=== PATIENT | female | born 1950 | race Caucasian/White ===

== ENCOUNTER 2018-05-13 20:38 | Inpatient (IN) | payer OTHER ==
--- NOTE | 2018-05-13 20:51 | EDPHY ---
H & P Time Seen by Provider: 05/13/18 20:47 HPI/ROS: CHIEF COMPLAINT: Chest pain HISTORY OF PRESENT ILLNESS: Patient is a 60-year-old female presents emergency department chest pain starting around 4:00 a.m.. She states she may have felt slightly off last evening is not sure the exact onset. EMS was notified. They noticed an ST elevation [place]. A cardiac alert was called in route. I spoke with the air defense artillery senior sergeant on the phone while they were traveling to [facility]. Patient states that she now has 1/10 chest pain after receiving nitroglycerin. She had no nausea vomiting. No diaphoresis. No leg pain or swelling. She has had no previous heart attack. REVIEW OF SYSTEMS: 10 systems were reveiwed and are negative with the exception of the elements mentioned in the history of present illness. Past medical history: Denies Social history: Patient does not smoke. She is Physical Exam: Vitals noted GENERAL: Well-appearing, in no acute distress, alert. HEENT: Eyes normal to inspection, normal pharynx, no signs of dehydration. NECK: Normal, supple. RESPIRATORY: Clear to auscultation bilaterally, no rales, rhonchi or wheezing. CVS: Regular rate and rhythm, no rubs, murmurs, or gallops. ABDOMEN: Soft, nontender, nondistended, no organomegaly. BACK: Normal to inspection, no CVA tenderness. SKIN: Normal color, no rash, warm, dry. No pallor. EXTREMITIES: No pedal edema, no calf tenderness, no Homans sign or cords, no joint swelling. NEURO/PSYCH: Alert and oriented, normal mood and affect, normal motor sensory exam. No obvious cranial nerve deficit. Constitutional: Initial Vital Signs Temperature (C) 36.6 C 05/13/18 20:38 Heart Rate 70 05/13/18 20:38 Respiratory Rate 16 05/13/18 20:38 Blood Pressure 158/77 H 05/13/18 20:38 O2 Sat (%) 94 05/13/18 20:38 O2 Delivery Mode Room Air O2 (L/minute) 2 Allergies/Adverse Reactions: Penicillins Allergy (Verified 05/13/18 20:55) Home Medications: Medication Instructions Recorded NK [No Known Home Meds] 05/13/18 Medical Decision Making ED Course/Re-evaluation: In the emergency department I met EMS on arrival. I took report from the air defense artillery senior sergeant. I was at the patient's bedside for evaluation. EKG shows normal sinus rhythm, [normal rate, normal axis, normal intervals]. There is ST elevation in 1, aVL, V2 through V5. There is depression in 2, 3 and AVF. This is an abnormal EKG with acute ST-elevation TX. Patient was given morphine 4 mg IV for pain control. Patient reported that she was feeling a "pressure." I discussed the case with Dr. Souza on the phone. 2109: I rechecked the patient. She was hemodynamically stable. Patient continued to have chest pain that was slightly worsening. She was given nitroglycerin sublingual. Differential Diagnosis: My differential in includes but is not limited to ACS, acute TX, dissection, aneurysm, pulmonary embolus - Data Points Laboratory Results: Laboratory Results 05/13/18 20:50 05/13/18 05/13/18 05/13/18 20:51 20:50 20:50 WBC RBC Hgb POC Hgb 15.0 gm/dL gm/dL (12.6-16.3) Hct POC Hct 44 % % (38-47) MCV MCH MCHC RDW Plt Count MPV Neut % (Auto) Lymph % (Auto) [place] % (Auto) Eos % (Auto) Baso % (Auto) Nucleat RBC Rel Count Absolute Neuts (auto) Absolute Lymphs (auto) Absolute Monos (auto) Absolute Eos (auto) Absolute Basos (auto) Absolute Nucleated RBC Immature Gran % Immature Gran # PT REJ INR REJ APTT REJ POC Sodium 139 mEq/L mEq/L (135-145) Sodium Pending POC Potassium 3.5 mEq/L mEq/L (3.3-5.0) Potassium Pending POC Chloride 109 mEq/L mEq/L (97-110) Chloride Pending Carbon Dioxide Pending POC Total CO2 17 mEq/L L mEq/L (22-31) Anion Gap Pending POC BUN 12 mg/dL mg/dL (7-23) BUN Pending Creatinine Pending POC Creatinine 0.8 mg/dL mg/dL (0.6-1.0) Estimated GFR Pending Glucose Pending POC Glucose 142 mg/dL H mg/dL (70-100) Calcium Pending POC Troponin I 05/13/18 05/13/18 20:50 20:44 WBC 9.59 10^3/uL H 10^3/uL (3.80-9.50) RBC 5.07 10^6/uL 10^6/uL (4.18-5.33) Hgb 15.0 g/dL g/dL (12.6-16.3) POC Hgb Hct 42.9 % % (38.0-47.0) POC Hct MCV 84.6 fL fL (81.5-99.8) MCH 29.6 pg pg (27.9-34.1) MCHC 35.0 g/dL g/dL (32.4-36.7) RDW 12.6 % % (11.5-15.2) Plt Count 285 10^3/uL 10^3/uL (150-400) MPV 9.9 fL fL (8.7-11.7) Neut % (Auto) 65.7 % % (39.3-74.2) Lymph % (Auto) 27.9 % % (15.0-45.0) [place] % (Auto) 5.6 % % (4.5-13.0) Eos % (Auto) 0.3 % L % (0.6-7.6) Baso % (Auto) 0.2 % L % (0.3-1.7) Nucleat RBC Rel Count 0.0 % % (0.0-0.2) Absolute Neuts (auto) 6.29 10^3/uL 10^3/uL (1.70-6.50) Absolute Lymphs (auto) 2.68 10^3/uL 10^3/uL (1.00-3.00) Absolute Monos (auto) 0.54 10^3/uL 10^3/uL (0.30-0.80) Absolute Eos (auto) 0.03 10^3/uL 10^3/uL (0.03-0.40) Absolute Basos (auto) 0.02 10^3/uL 10^3/uL (0.02-0.10) Absolute Nucleated RBC 0.00 10^3/uL 10^3/uL (0-0.01) Immature Gran % 0.3 % % (0.0-1.1) Immature Gran # 0.03 10^3/uL 10^3/uL (0.00-0.10) PT INR APTT POC Sodium Sodium POC Potassium Potassium POC Chloride Chloride Carbon Dioxide POC Total CO2 Anion Gap POC BUN BUN Creatinine POC Creatinine Estimated GFR Glucose POC Glucose Calcium POC Troponin I 0.15 ng/mL H ng/mL (0.00-0.08) Point of Care Test Results: Chemistry 05/13/18 05/13/18 20:51 20:44 POC Sodium 139 mEq/L mEq/L (135-145) POC Potassium 3.5 mEq/L mEq/L (3.3-5.0) POC Chloride 109 mEq/L mEq/L (97-110) POC Total CO2 17 mEq/L L mEq/L (22-31) POC BUN 12 mg/dL mg/dL (7-23) POC Creatinine 0.8 mg/dL mg/dL (0.6-1.0) POC Glucose 142 mg/dL H mg/dL (70-100) POC Troponin I 0.15 ng/mL H ng/mL (0.00-0.08) ISTAT H&H 05/13/18 20:51 POC Hgb 15.0 gm/dL gm/dL (12.6-16.3) POC Hct 44 % % (38-47) Departure - Departure Disposition: [facility] Inpatient Acute Clinical Impression: Chest pain STEMI (ST elevation myocardial infarction) Qualifiers: Involved coronary artery: unspecified coronary artery Qualified Code(s): I21.3 - ST elevation (STEMI) myocardial infarction of unspecified site Condition: Good Referrals: Patient,NotPresent [Primary Care Provider] - As per Instructions
[2018-05-13 20:54] LABS: PLATELET COUNT 285 10^3/uL (150-400)
[2018-05-13] MEDS ORDERED: NITROGLYCERIN 0.4 MG BTL SL ONE ×2 (21:00→21:12)
[2018-05-13] MEDS ORDERED: MIDAZOLAM 2 MG/2 ML VIAL ONE (21:01)
[2018-05-13] MEDS ORDERED: fentaNYL 100 MCG/2 ML INJ ONE (21:01)
[2018-05-13] MEDS ORDERED: LIDOCAINE 1% 300 MG/30 ML SDV ONE (21:01)
[2018-05-13] MEDS ORDERED: IOPAMIDOL (ISOVUE-370) 150 ML BTL IV ONE (21:01)
[2018-05-13] MEDS ORDERED: ATROPINE SULFATE 1 MG/10 ML SYR ONE (21:27)
[2018-05-13] MEDS ORDERED: NITROGLYCERIN 1,500 MCG/15 ML VIAL MISC ONE (21:27)
[2018-05-13] MEDS ORDERED: EPINEPHrine 1 MG/10 ML SYR IVP ONE (21:27)
[2018-05-13] MEDS ORDERED: BIVALIRUDIN 250 MG/5 ML VIAL IV ONE (21:27)
[2018-05-13] MEDS ORDERED: METOPROLOL TARTRATE 5 MG/5 ML INJ ONE ×2 (21:45→21:56)
[2018-05-13] MEDS ORDERED: PRASUGREL HCL 10 MG TAB ONE (21:56)
--- NOTE | 2018-05-13 22:09 | PDDXCAT ---
Diagnostic Cath Note - . Date: 05/13/18 Sales Marketing Manager: Harley Indication: other (STEMI, anterior) - Procedure Access: right groin Procedure: left heart catheterization, coronary angiography, left ventriculogram - Materials Left Heart Cath size: 6F Left Heart Cath materials: standard multipack (JL4, JR4, pigtail) - Findings-Left Heart Catheterization LM: Unobstructed LAD: Thrombotic occlusion proximally LCX: Large vessel giving rise to obtuse marginal branch RCA: Dominant: Unobstructed EDP: 25 mm of mercury postprocedure LVEF: 35 Wall motion: Anterior apical akinesis Complications: None Estimated blood loss: <50ml Closure method: Angioseal Assessment: ST segment elevation myocardial infarction with thrombotic occlusion of the proximal LAD Plan: PCI Intervention: After reviewing diagnostic angiogram was a to proceed with emergency PCI. Patient was anticoagulated with Angiomax. Using a 6 [place] JL4 guiding catheter left main coronary selectively intubated. Guiding shots were performed. Using a 0.014 luge wire the LAD was entered the wire placed in the distal vessel. 2 mm balloon was used with a single inflation to reestablish antegrade flow. The wire was repositioned in the apex. 3.5 x 24 mm synergy stent was placed across the lesion and deployed using a single inflation. It was post dilated with a 4 mm noncompliant balloon x2. The wire was withdrawn. Repeat angiograms revealed a distal edge dissection. It was elected to proceed with the 2nd stent. The lesion was rewired. A 3.5 x 12 mm synergy stent was placed distally. Was deployed using a single inflation to a diameter of 4 mm. The same stent balloon was used to post dilate the overlap. The wire was withdrawn. Final orthogonal angiograms were obtained. Left ventricular angiography was performed postprocedure. Conclusion: ST segment elevation myocardial infarction with thrombotic occlusion of the proximal LAD status post successful PCI and stenting. Ischemic cardiomyopathy with reduced LV systolic function elevated filling pressures. Patient begun on Dylon inhibition, beta rajinder, eplerenone along with dual antiplatelet therapy. In light of large anterior apical akinetic segment will initiate warfarin. Echocardiogram tomorrow for LV recovery. Patient Problems: Problems Problem Status Onset Chest pain Acute STEMI (ST elevation myocardial infarction) Acute
--- NOTE | 2018-05-13 22:26 | GCON ---
[f rep st] CONSULTATION CARDIAC ALERT NOTE DATE OF CONSULTATION: 05/13/2018 I am called for cardiac alert to visit Ms. Marin in the emergency department. She is 68 years old. She has a history of a cholecystectomy, history of a hysterectomy. No history of diabetes, hypertension, hyperlipidemia. No family history of early heart disease. Nonsmoker, who has had 24 hours of substernal chest pressure radiating to her shoulders. She activated 911. On arrival, EKG showed anterior ST elevation with reciprocal ST depression consistent with an acute ST-segment elevation myocardial infarction, and a cardiac alert was ordered. On my arrival, the patient was continuing to have discomfort of her chest. It was radiating to her shoulders. It did not radiate to her jaw. It did not radiate to her abdomen. It was not associated with shortness of breath, nausea, or vomiting. She clearly was associated with anxiety. MEDICATIONS: Patient takes no medicines regularly. ALLERGIES: Include penicillin. SURGICAL HISTORY: As outlined above. SOCIAL HISTORY: No acute stressors. GENERAL REVIEW OF SYSTEMS: Negative for bruising, bleeding, hematemesis, melena , or hemoptysis. PHYSICAL EXAMINATION: VITAL SIGNS: On my arrival, heart rate was 82. Blood pressure was 130/70. Respiratory rate was 16 and nonlabored. GENERAL: She is a well-nourished, well-developed female. She was resting in bed at 30 degrees. She is mildly anxious without significant diaphoresis. HEENT: Pupils were equal and reactive to light. She had no conjunctival injection. Her oropharynx was clear. NECK: Revealed no significant JVP. CHEST: Clear to auscultation and percussion. Palpation of anterior chest wall revealed no RV lift. She had a regular rate and rhythm with soft S4. ABDOMEN: Soft, nontender with good bowel sounds. I could not appreciate any organomegaly. Femoral pulses were +2 and equal. Dorsalis pedis pulses were +2 and equal. There was no livedo reticularis. There was no rash. NEUROLOGIC: She was alert and oriented. There was facial symmetry. She was moving upper and lower extremities normally. DATA BASE: EKG showed sinus rhythm at 77 beats per minute. RI interval is 106 milliseconds, QRS duration 80 milliseconds, QT corrected 469. There is ST elevation V1, V2 all the way out to V4, with ST elevation in I, aVL, and reciprocal ST depression in III and AVF. LABORATORY DATA: Pending. CONCLUSION: ST-segment elevation anterior wall myocardial infarction by EKG and clinical history. Ongoing discomfort. Stable vital signs. Patient was taken to cardiac photonic laboratory technician for directed angiogram with likely PCI. Risks and benefits of this approach were discussed with the patient and her . We will proceed. /[id number]/MODL MTDD
--- NOTE | 2018-05-13 23:43 | CPEKG ---
Test Reason : OPEN Blood Pressure : / mmHG Vent. Rate : 077 BPM Atrial Rate : 076 BPM P-R Int : 166 ms QRS Dur : 080 ms QT Int : 431 ms P-R-T Axes : 054 019 -30 degrees QTc Int : 488 ms Sinus rhythm Probable left atrial enlargement Lateral infarct, acute (LAD) Probable anteroseptal infarct, recent Confirmed by Arabella Mars ([id number]) on 05/13/2018 11:42:16 PM Referred By: ARABELLA MARS Confirmed By:Arabella Mars
[2018-05-14] MEDS: ATORVASTATIN CALCIUM 40 MG TAB PO SCH ×2 (01:12→10:28)
[2018-05-14 02:17] LABS: CREATINE KINASE 2824 IU/L (0-156)
[2018-05-14 05:39] LABS: PLATELET COUNT 238 10^3/uL (150-400)
[2018-05-14 06:23] LABS: CREATINE KINASE 5432 IU/L (0-156)
[2018-05-14] MEDS: CALCIUM CARBONATE 500 MG CHEWABLE TAB PO PRN ×3 (09:37→21:08)
[2018-05-14] MEDS: CARVEDILOL 3.125 MG TAB PO SCH ×2 (10:27→18:10)
[2018-05-14] MEDS: ASPIRIN 81 MG CHEWABLE TAB PO SCH (10:28)
[2018-05-14] MEDS: PRASUGREL HCL 10 MG TAB PO SCH (10:28)
--- NOTE | 2018-05-14 10:41 | PDMN ---
Medical Necessity Medical necessity: MCG M230 CO, 2 days: 68 yo w/ acute CO (STEMI, anterior). Emergent label maker for tx - ST segment elevation CO w/ thrombotic occlusion of proximal LAD, PCI/stent completed. Admit to ICU inpatient status.
--- NOTE | 2018-05-14 10:52 | ECHO ---
[email or web address] [address] Main: [phone] Echocardiography Examination Transthoracic Name: SKYLER DOUGHERTY MR#: [id number] Study Date: 05/14/2018 Study Time: 06:00 AM Date of : 1950 Age: 68 year(s) Height: 162.6 cm (64 in.) Weight: 77.57 kg (171 lb.) BSA: 1.83 m2 Gender: Female Examination: Indication: LV recovery post stents Image Quality: Good Contrast: Requested by: Master Souza md BP: 131 mmHg/74 mmHg Heart Rate: Rhythm: Indication: LV recovery post stents Procedure Staff Referring Physician: Senior Project Manager Engineering: Klaudia Botello RDCS Reading Physician: Master Souza MD Requesting Provider: Ordering Physician: Master Souza MD Indication: LV recovery post stents Measurements Chambers AV/MV Label Value Normal Value Label Value Normal Value IVSd, 2D 0.6 cm (0.6cm - 1.1cm) AR PHT 0.53 s LVDd, 2D 4.5 cm (3.9cm - 5.3cm) AR PHT 529 ms LVDs, 2D 3.8 cm (2.1cm - 4cm) AR Vmax 4.61 m/s LVEF, 2D 36 % (54% - 74%) AV PGmean 4 mmHg LVEF, BP 44 % (55% - 70%) AV Vmax, Curve 1.3 m/s LVEF, MOD2 51 % (55% - 70%) MV A Vmax 0.82 m/s LVEF, MOD4 38 % (55% - 70%) MV E' lateral 0.06 m/s LVPWd, 2D 1 cm MV E' mean 0.06 m/s LA Area, A2C 15.5 cm2 (0cm2 - 20cm2) MV E' septal 0.06 m/s LA Volume, A2C 39 ml (22ml - 52ml) MV E Vmax 0.98 m/s LADs, 2D 3.3 cm (2.7cm - 3.8cm) MV E/A 1.2 Additional Vessels MV E/E' lateral 15.5 Label Value Normal Value MV E/E' mean 16.33 AoAsc 2.9 cm MV E/E' septal 16.8 (0.45 - 1.25) AoRoot, MM 3 cm (2.2cm - 3.7cm) TV/PV Label Value Normal Value RA Pressure 5 mmHg RVSP 44 mmHg Patient: SKYLER DOUGHERTY Study Date: 05/14/2018 Page 1 of 2 06:00 AM TR Pmax 39 mmHg TR Vmax 3.12 m/s Conclusions Overall Conclusions: Anterior apical myocardial infarction with ejection fraction of 30-35%. Right ventricular systolic pressure 44 mm of mercury. Mild mitral regurgitation. No LV thrombus identified. Findings Left Ventricle: Diastolic dysfunction is indeterminate.LV mid inferoseptal wall and entire apical regions are akinetic. EF estimate is 30-35%.. Left ventricle is normal in size. Moderately reduced systolic left ventricular function. There is mild concentric left ventricular hypertrophy. Right Ventricle: Normal size right ventricle. Left Atrium: The left atrium is normal in size. Right Atrium: The right atrium is normal in size. Mitral Valve: Mitral valve appears structurally normal. Mild mitral regurgitation. Aortic Valve: Trivial aortic regurgitation is present. The aortic valve is trileaflet. Tricuspid Valve: Mild pulmonary hypertension (RVSP is 44mmHG.). Tricuspid valve leaflets are structurally normal. Trivial tricuspid regurgitation. Right Ventricular systolic pressure is measured at 44 mmHg. Pulmonic Valve: Pulmonic valve is poorly visualized. Trivial pulmonic valve regurgitation is present. Aorta: The aortic root size in M-mode measures 3.0 cm. The ascending aorta measures 2.9 cm. Aorta Measurements AoRoot, MM is 3.0 cm. Pericardium: A pericardial fat pad is present. Exam Details Image Quality: Good (No Signature Object) Patient: SKYLER DOUGHERTY Study Date: 05/14/2018 Page 2 of 2 06:00 AM [id number]
--- NOTE | 2018-05-14 10:55 | SOAPPROG ---
[facility] Progress Note Assessment/Plan: Assessment: Problem list: 1. Anterior wall myocardial infarction status post LAD PCI 2. Ischemic cardiomyopathy 3. Hyperlipidemia Procedures: Left heart catheterization coronary ventricular angiography with PCI of the LAD on 05/13/2018. Echocardiogram on 05/14/2018. Impression: Day 1 status post anterior wall myocardial infarction. Uncomplicated. Episodes of AIVR well tolerated. Single episode of heartburn associated with improving EKG. CPKs noted. Risk include significant hyperlipidemia. Recommendations: Continue current medical therapy. Continue telemetry observation. Advanced activity. 05/14/18 10:52 Subjective: Uneventful night. Brief episode of mid epigastric discomfort consistent with heartburn. Different from her presenting symptoms. No shortness of breath no PND no orthopnea. No palpitations or syncope. Telemetry overnight showed AIVR. The echocardiogram showed ejection fraction 30-35% with anterior apical akinesis. There is preserved wall thickness. There are no significant valvular abnormalities. There was no LV thrombus. There is no evidence of other complications. Objective: Medications Generic Name Dose Route Start Last Admin Trade Name Freq PRN Reason Stop Dose Admin Aspirin 81 mg 05/14/18 09:00 05/14/18 10:28 Aspirin PO 11/10/18 08:59 81 mg DAILY [facility] Atorvastatin Calcium 80 mg 05/13/18 22:15 05/14/18 10:28 Lipitor PO 11/09/18 22:14 80 mg DAILY [facility] Carvedilol 3.125 mg 05/14/18 08:00 05/14/18 10:27 Coreg PO 11/10/18 07:59 3.125 mg BIDMEAL [facility] Enalapril Maleate 2.5 mg 05/14/18 09:00 Vasotec PO 11/10/18 08:59 BID [facility] Eplerenone 25 mg 05/14/18 09:00 Inspra PO 11/10/18 08:59 DAILY [facility] Prasugrel 10 mg 05/14/18 09:00 05/14/18 10:28 Effient PO 11/10/18 08:59 10 mg DAILY [facility] Warfarin Sodium 5 mg 05/14/18 16:00 Coumadin PO 11/10/18 15:59 DAILY AT 4PM [facility] Vital Signs Temp Pulse Resp BP Pulse Ox 36.6 C 62 14 132/74 H 93 05/13/18 23:30 05/14/18 10:27 05/14/18 08:00 05/14/18 10:27 05/14/18 08:00 Laboratory Results 05/14/18 05:20 05/14/18 05:20 05/13/18 05/14/18 05/15/18 05:59 05:59 06:59 Intake Total 800 Balance 800 PT REJ 05/13/18 21:17 INR REJ 05/13/18 21:17 Laboratory Tests 05/14/18 05/14/18 05/14/18 01:05 05:20 05:20 Creatine Kinase 2824 H 5432 H CK-MB (CK-2) Fraction 236.00 H 447.00 H Cholesterol 275 H LDL Cholesterol, Calc 201 H 05/14/18 08:15 Creatine Kinase CK-MB (CK-2) Fraction 349.00 H Cholesterol LDL Cholesterol, Calc Physical Exam - Physical Exam General Appearance: alert, no apparent distress Neck: full range of motion, supple Respiratory: lungs clear Cardiac/Chest: regular rate, rhythm, No JVD Peripheral Pulses: 1+: carotid (R), carotid (L), femoral (R), femoral (L) Abdomen: normal bowel sounds, non-tender Back: No CVA tenderness Skin: warm/dry Lymphatic: no adenopathy Extremities: No pedal edema, No calf tenderness Neuro/Psych: no motor/sensory deficits, alert, No facial droop ICD10 Worksheet Patient Problems: Problems Problem Status Onset Chest pain Acute STEMI (ST elevation myocardial infarction) Acute Review of Systems - Review of Systems Constitutional: denies: chills, fever EENTM: no symptoms reported Respiratory: no symptoms reported Cardiac: no symptoms reported Gastrointestinal/Abdominal: abdominal pain Genitourinary: no symptoms Musculoskelatal: no symptoms Skin: no symptoms Neurological: no symptoms Hematologic/Lymphatic: no symptoms reported Immunologic/allergic: no symptoms reported
[2018-05-14 11:03] LABS: CREATINE KINASE 4304 IU/L (0-156)
[2018-05-14] MEDS: ENALAPRIL MALEATE 2.5 MG TAB PO SCH ×2 (12:00→22:03)
[2018-05-14] MEDS: EPLERENONE 25 MG TAB PO SCH (12:00)
[2018-05-14] MEDS: ACETAMINOPHEN 325 MG TAB PO PRN ×2 (16:00→23:09)
[2018-05-14] MEDS: WARFARIN SODIUM 5 MG TAB PO SCH (16:00)
[2018-05-14 17:43] LABS: CREATINE KINASE 2301 IU/L (0-156)
[2018-05-15] MEDS: CARVEDILOL 3.125 MG TAB PO SCH ×2 (09:54→18:34)
[2018-05-15] MEDS: ASPIRIN 81 MG CHEWABLE TAB PO SCH (09:54)
[2018-05-15] MEDS: ATORVASTATIN CALCIUM 40 MG TAB PO SCH (09:54)
[2018-05-15] MEDS: ENALAPRIL MALEATE 2.5 MG TAB PO SCH ×2 (09:54→21:07)
[2018-05-15] MEDS: PRASUGREL HCL 10 MG TAB PO SCH (09:55)
[2018-05-15] MEDS: EPLERENONE 25 MG TAB PO SCH (09:55)
[2018-05-15] MEDS ORDERED: LACTULOSE 20 GM/30 ML UDCUP PO PRN (10:14)
[2018-05-15] MEDS ORDERED: MAGNESIUM HYDROXIDE 30 ML UDCUP PO PRN (10:14)
[2018-05-15] MEDS ORDERED: POLYETHYLENE GLYCOL 3350 17 GM PKT PO PRN (10:14)
[2018-05-15] MEDS ORDERED: BISACODYL 10 MG SUPP PR PRN (10:14)
--- NOTE | 2018-05-15 12:16 | ASMTCMCOM ---
CM Note CM Note Notes: Pt is a 68 yo F presents with RI. Transitional care and Cardiac consults are ordered. I anticipate pt will likely be discharged independently with outpatient follow-up as indicated. CM available if needs arise. Plan: independent Date Signed: 05/15/2018 12:15 PM Electronically Signed By:WINIFRED Austin
--- NOTE | 2018-05-15 13:09 | SOAPPROG ---
TOMAS Progress Note Assessment/Plan: Assessment: Problem list: 1. Anterior wall myocardial infarction status post LAD PCI 2. Ischemic cardiomyopathy 3. Hyperlipidemia Procedures: Left heart catheterization coronary ventricular angiography with PCI of the LAD on 05/13/2018. Echocardiogram on 05/14/2018. 05/14/18 10:52 Impression: Day 1 status post anterior wall myocardial infarction. Uncomplicated. Episodes of AIVR well tolerated. Single episode of heartburn associated with improving EKG. CPKs noted. Risk include significant hyperlipidemia. Recommendations: Continue current medical therapy. Continue telemetry observation. Advanced activity. 05/15/18 13:06 Impression: Day 2. Status post anterior myocardial infarction. No complications. Stable hemodynamics on good medical therapy. Recommendations: Advanced activity as tolerated. Continue telemetry observation for a full 48 hr. Continue anticoagulation with anterior regional wall motion abnormality. Discharge planning for tomorrow. Subjective: Uneventful 24 hr. No further chest pain. Does have episodes where she feels like she is not going to have a next breath. She has had some mild heartburn relieved with Tums. She has had difficulty with constipation. She has had occasional heart flutters. She has been in bed without regular activity as of yet. She denies PND orthopnea. She has had no palpitations syncope or near syncope. Objective: Medications Generic Name Dose Route Start Last Admin Trade Name Freq PRN Reason Stop Dose Admin Eplerenone 25 mg 05/14/18 09:00 05/15/18 09:55 Inspra PO 11/10/18 08:59 25 mg DAILY [facility] Warfarin Sodium 5 mg 05/14/18 16:00 05/14/18 16:00 Coumadin PO 11/10/18 15:59 5 mg DAILY AT 4PM [facility] Aspirin 81 mg 05/14/18 09:00 05/15/18 09:54 Aspirin PO 11/10/18 08:59 81 mg DAILY [facility] Atorvastatin Calcium 80 mg 05/13/18 22:15 05/15/18 09:54 Lipitor PO 11/09/18 22:14 80 mg DAILY [facility] Carvedilol 3.125 mg 05/14/18 08:00 05/15/18 09:54 Coreg PO 11/10/18 07:59 3.125 mg BIDMEAL [facility] Enalapril Maleate 2.5 mg 05/14/18 09:00 05/15/18 09:54 Vasotec PO 11/10/18 08:59 2.5 mg BID [facility] Prasugrel 10 mg 05/14/18 09:00 05/15/18 09:55 Effient PO 11/10/18 08:59 10 mg DAILY [facility] Vital Signs Temp Pulse Resp BP Pulse Ox 36.6 C 55 L 14 108/79 96 05/15/18 11:46 05/15/18 11:46 05/15/18 11:46 05/15/18 11:46 05/15/18 11:46 Laboratory Results 05/14/18 05:20 05/14/18 05:20 05/14/18 05/15/18 05/16/18 04:59 05:59 05:59 Intake Total Balance PT REJ 05/13/18 21:17 INR REJ 05/13/18 21:17 ICD10 Worksheet Patient Problems: Problems Problem Status Onset Chest pain Acute STEMI (ST elevation myocardial infarction) Acute Review of Systems - Review of Systems Constitutional: no symptoms reported EENTM: no symptoms reported Respiratory: shortness of breath. denies: cough, orthopnea, wheezing Cardiac: palpitations. denies: chest pain, edema, irregular heart rate, lightheadedness, syncope Gastrointestinal/Abdominal: constipation. denies: diarrhea, nausea, vomiting Genitourinary: no symptoms Musculoskelatal: no symptoms Skin: no symptoms Neurological: no symptoms Hematologic/Lymphatic: no symptoms reported Immunologic/allergic: no symptoms reported
[2018-05-15] MEDS: WARFARIN SODIUM 5 MG TAB PO SCH (16:49)
[2018-05-15] MEDS: SENNOSIDES/DOCUSATE SODIUM TAB PO SCH (21:09)
[2018-05-16 04:25] LABS: INR 1.39 (0.83-1.16); PROTIME(PATIENT) 16.5 SEC (12.0-15.0)
[2018-05-16] MEDS: CARVEDILOL 3.125 MG TAB PO SCH (10:06)
[2018-05-16] MEDS: ASPIRIN 81 MG CHEWABLE TAB PO SCH (10:07)
[2018-05-16] MEDS: ATORVASTATIN CALCIUM 40 MG TAB PO SCH (10:07)
[2018-05-16] MEDS: PRASUGREL HCL 10 MG TAB PO SCH (10:08)
[2018-05-16] MEDS: ENALAPRIL MALEATE 2.5 MG TAB PO SCH (10:08)
[2018-05-16] MEDS: EPLERENONE 25 MG TAB PO SCH (10:08)
[2018-05-16] MEDS: SENNOSIDES/DOCUSATE SODIUM TAB PO SCH (10:08)
[2018-05-16] MEDS ORDERED: PSYLLIUM METAMUCIL 1 PKT PO ONE (10:18)
--- NOTE | 2018-05-16 10:48 | GDS ---
[f rep st] DISCHARGE SUMMARY DISCHARGE DIAGNOSES: 1. Acute ST elevated anterior myocardial infarction, status post stenting to the left anterior desce nding artery with a 3.5 x 24 mm and 3.5 x 12 mm overlapping synergy drug-eluting stents. 2. Ischemic cardiomyopathy with ejection fraction of 30% to 35%. 3. Hyperlipidemia. 4. Accelerated idioventricular rhythm. HOSPITAL COURSE: For detailed H and P, please see prior dictation. Briefly, the patient is a 68-year-old female who presented to the hospital with an anterior ST elevat ed myocardial infarction. She was at home when she developed substernal chest pressure radiating to her shoulders, which persisted for 24 hours. She ultimately activated 911 and her EKG showed anterio r ST elevation with reciprocal ST depression consistent with an acute ST elevated myocardial infarcti on. A cardiac alert was ordered. Dr. Master Souza responded on May 13, 2018. The patient was u rgently taken to the cardiac catheterization laboratory where she was found to have a thrombotic occl usion to the proximal left anterior descending artery. This was stented with overlapping 3.5 x 24 mm and 3.5 x 12 mm Synergy drug-eluting stents. Her troponin peaked at 198 and trended down to 109 the following day. An echocardiogram revealed anterior myocardial infarction with an ejection fraction of 30% to 35%. No LV thrombus was identified. She had mildly elevated pulmonary pressures with righ t ventricular systolic pressure of 44. She was started on good medical therapy including beta blocke r, ERIC inhibitor, and Inspra. She was started on aspirin and Effient for her cardiac event, but ulti mately switched to Plavix. She was also placed on Coumadin for apical hypokinesis. The day of discharge, she denied any chest discomfort or shortness of breath. She has been ambulatin g the halls without any associated symptoms. She feels like she is slowly moving back to her baselin e. She denies any right groin discomfort. LABORATORY: Her troponin peaked at 198 and trended down to 109 the following day. Her BNP was eleva ciara at 1300. Total cholesterol was 275, LDL 201, HDL 59, and triglyceride 76. PHYSICAL EXAMINATION: GENERAL: Patient appears in no acute distress. VITALS: Blood pressure 103/5 1, heart rate 72, oxygen saturation of 97% on room air, afebrile. LUNGS: Clear to auscultation. No wheezes, rhonchi, or crackles auscultated. CARDIAC: Regular rate and rhythm, without any murmurs, rubs, or gallops appreciated. EXTREMITIES: Palpable pulses bilaterally without any evidence of jazlyn a. Right groin is clean, intact without any evidence of infection or hematoma. DISCHARGE MEDICATIONS: Aspirin 81 mg daily x30 days, Lipitor 40 mg daily, calcium 1000 mg p.r.n., Co reg 3.125 mg twice daily, enalapril 2.5 mg twice daily, Inspra 25 mg daily, Plavix 75 mg daily, vitam in D3 daily, multivitamin daily, herbal supplement daily, Tylenol p.r.n., Coumadin 5 mg daily. PLAN: The patient is currently stable and ready for discharge home. She is aware that she is to rem ain on aspirin, Plavix, and Coumadin. Aspirin can be discontinued in 30 days. She will be enrolled in our Coumadin Clinic. Groin precautions were discussed with her today. She is scheduled to follow up with Kayy, Nurse Practitioner, on May 23 at 10:15. Greater than 30 minutes was spent coordinating the patient's care today. /[id number]/MODL
--- NOTE | 2018-05-16 11:41 | ASMTLACE ---
LACE Length of stay for Answers: 3 days current admission Acuity / Level of Answers: Yes Care: Did the patient have an inpatient admission? Comorbidities - select Answers: Previous myocardial all that apply infarction # of Emergency department Answers: 1-2 visits in the last 6 months Score: 8 Date Signed: 05/16/2018 11:40 AM Electronically Signed By:Yolis Kohler RN
[2018-05-16 11:57] VITALS: BP 85/45
[2018-05-16] MEDS: WARFARIN SODIUM 5 MG TAB PO SCH (14:54)
--- NOTE | 2018-05-18 08:46 | CPEKG ---
Test Reason : OPEN Blood Pressure : / mmHG Vent. Rate : 057 BPM Atrial Rate : 058 BPM P-R Int : 171 ms QRS Dur : 075 ms QT Int : 459 ms P-R-T Axes : 077 083 079 degrees QTc Int : 447 ms Sinus rhythm Probable left atrial enlargement Anteroseptal infarct, acute Lateral leads are also involved In comparison to prior ECG, large, dynamic changes to the high lateral leads, in process of resolving Confirmed by Apollo Cutler ([id number]) on 05/18/2018 8:46:20 AM Referred By: MAYKEL CONKLIN Confirmed By:Apollo Cutler
== END 2018-05-16 14:55 | disposition home or self-care (01) | DRG 247 ==
LOC: EDUNIT# → F2N 22:49 → F2W 05-14 21:45
PROVIDERS: ADMIT Internal Medicine Interventional Cardiology; ATTEND Internal Medicine Interventional Cardiology
DX: I21.02 ST elevation (STEMI) myocardial infarction involving left anterior descending coronary artery (principal); I25.5 Ischemic cardiomyopathy; E78.5 Hyperlipidemia, unspecified; I45.6 Pre-excitation syndrome
CPT/HCPCS: 82435-PO; 82565-PO; 82947-PO; 84132-PO; 84295-PO; 84484-ER; 84520-PO; 85014-ER; C1725; C1760; C1769; C1874; C1887; C9606; J0461; J0583; J1200; J1644; J2250; J2270; J3010; Q9967